=== PATIENT | female | born 1990 | race Two or more races ===

== ENCOUNTER 2019-11-25 14:15 | Emergency (ER) | payer SELFPAY ==
[~2019-11-25] VITALS: Ht 157.5 cm; Wt 80.3 kg
--- NOTE | 2019-11-25 14:15 | NUR ---
PT BIBRA 61 FROM HOME C/O SI ATTEMPT "TOOK HAND FULL OF TYLENOL 500MG BUT DIDNT SWALLOW PER REPORT FROM [facility]" PT IS AAOX4, NOT IN RESPIRATORY DISTRESS, HOOKED TO MAINTENANCE SUPERVISOR 2ND SHIFT, KEPT RESTED AND COMFORTABLE, WILL CONTINUE TO MONITOR.
--- NOTE | 2019-11-25 14:25 | NUR ---
SEEN AND EXAMINED BY .
--- NOTE | 2019-11-25 14:34 | NUR ---
LUCERO PHLEB AT [facility] FOR BLOOD DRAW.
--- NOTE | 2019-11-25 14:40 | NUR ---
URINE SPECIMEN COLLECTED AND SENT TO LAB.
[2019-11-25 14:48] LABS: APPEARANCE,URINE SLIGHTLY CLOUDY (CLEAR); BILIRUBIN,URINE Negative (NEGATIVE); BLOOD, URINE Trace-lysed Ery/uL (NEGATIVE); COLOR,URINE Yellow (YELLOW); KETONES,URINE Trace (NEGATIVE); LEUKOCYTE ESTERASE ,URINE Small (NEGATIVE); NITRITE, URINE Positive (NEGATIVE); PH,URINE 6.5 (5.0-8.0); PROTEIN,URINE 100 mg/dl (NEGATIVE); UGLUCOSE Negative (NEGATIVE); UROBILINOGEN,URINE 0.2 EU/dL (0.2)
[2019-11-25 14:51] LABS: BACTERIA,URINE Many /HPF (None Seen); WBC,URINE 20-30 /HPF (0-3)
[2019-11-25 14:52] LABS: RBC,URINE 0-2 /HPF (0-2); SQUAMOUS EPITHELIAL CELL,UR Few /HPF (None Seen)
[2019-11-25 14:53] LABS: BASOPHILS # (AUTO) 0.1 /CMM (0.0-0.2); BASOPHILS % (AUTO) 1.2 % (0.0-2.0); EOSINOPHILS % (AUTO) 0.7 % (0.0-6.0); HEMATOCRIT 42 % (33-45); HEMOGLOBIN 13.9 g/dL (11.5-14.8); LYMPHOCYTES # (AUTO) 2.2 /CMM (0.8-4.8); LYMPHOCYTES % (AUTO) 23.1 % (20.0-44.0); MEAN CORPUSCULAR HGB CONC 33 g/dl (31.0-36.0); MEAN CORPUSCULAR VOLUME 86 fL (82-100); MONOCYTES # (AUTO) 0.4 /CMM (0.1-1.30); MONOCYTES % (AUTO) 3.8 % (2.0-12.0); NEUTROPHILS # (AUTO) 6.8 /CMM (1.8-8.9); NEUTROPHILS % (AUTO) 71.2 % (43.0-81.0); PLATELET COUNT (AUTO) 304 /CMM (150-450); WHITE BLOOD COUNT (AUTO) 9.5 K/uL (4.3-11.0)
[2019-11-25 15:00] LABS: CALCIUM, SERUM 9.4 mg/dL (8.5-10.1); CARBON DIOXIDE 27 mmol/L (21-32); CHLORIDE 104 mmol/L (98-107); CREATININE 1.2 mg/dL (0.6-1.3); GLUCOSE 116 mg/dL (74-106); POTASSIUM 4.6 mmol/L (3.5-5.1); SODIUM SERUM 140 mmol/L (136-145); UREA NITROGEN, BLOOD 14 mg/dL (7-18)
[2019-11-25 15:08] LABS: ACETAMINOPHEN < 2 ug/ml (10-30); ALANINE AMINOTRANSFERASE 20 U/L (12-78); ALBUMIN 3.8 g/dL (3.4-5.0); ALCOHOL, BLOOD < 3 mg/dL (0-0); ALKALINE PHOSPHATASE 96 U/L (46-116); ASPARTATE AMINOTRANSFERASE 18 U/L (15-37); BILIRUBIN,DIRECT 0.1 mg/dL (0.0-0.2); BILIRUBIN,TOTAL 0.3 mg/dL (0.2-1.0); SALICYLATE 2.3 mg/dL (2.8-20.0); TOTAL PROTEIN, SERUM 8.3 g/dL (6.4-8.2)
[2019-11-25] MEDS ORDERED: NITROFURANTOIN/NITROFURAN MAC 100 MG CAPSULE PO ONE (15:30)
[2019-11-25] MEDS ORDERED: NITROFURANTOIN/NITROFURAN MAC 100 MG CAPSULE ONE (15:40)
--- NOTE | 2019-11-25 16:19 | NUR ---
CALLED BUS [employer] MANAGER [employer], ETA 1 HOUR
--- NOTE | 2019-11-25 16:49 | NUR ---
[employer]ATEGY MANAGER AT BEDSIDE FOR EVAL.
--- NOTE | 2019-11-25 17:43 | NUR ---
ER PHLEB AT BEDSIDE FOR REPEAT BLOOD DRAW.
--- NOTE | 2019-11-25 18:37 | NUR ---
Patient discharged to home in stable condition. Written and verbal after care instructions given. Patient verbalizes understanding of instruction.
[2019-11-25 18:38] VITALS: BP 123/86
== END 2019-11-25 18:38 | disposition home or self-care (01) ==
LOC: ER 14:15
DX: N30.00 Acute cystitis without hematuria (principal); R94.31 Abnormal electrocardiogram [ECG] [EKG]; F41.9 Anxiety disorder, unspecified; Z98.890 Other specified postprocedural states
CPT/HCPCS: 36415; 80048; 80076; 80305; 80307; 80329; 81001; 84702; 85025; 87086; 93005; 99284; G0480 ×2; 81000-TC; 87186-TC